=== PATIENT | female | born 1970 | race Caucasian/White ===

== ENCOUNTER 2022-10-16 08:09 | Outpatient (RCR) | payer BC, SELFPAY ==
[2022-10-16 08:20] VITALS: BMI 30.3
[2022-10-16 14:25] VITALS: BMI 30.3
== END 2022-11-28 16:46 | disposition home or self-care (01) ==
LOC: ANHDMC 08:09
PROVIDERS: PCP Family Medicine; Visit Provider Family Medicine
DX: E11.65 Type 2 diabetes mellitus with hyperglycemia (principal); Z71.3 Dietary counseling and surveillance; Z71.89 Other specified counseling
CPT/HCPCS: 97802; G0108

== ENCOUNTER 2023-11-06 10:10 | Outpatient (CLI) | payer BC, SELFPAY ==
[2023-11-06 11:34] LABS: Influenza A QL RT-PCR Negative (Negative); Influenza B QL RT-PCR Negative (Negative); RSV RNA, RT-PCR Negative (Negative); SARS-CoV-2 RNA PCR Negative (Negative)
== END 2023-11-06 10:11 | disposition home or self-care (01) ==
LOC: ANHLAB 10:12
PROVIDERS: PCP Family Medicine; Visit Provider Physician Assistant
DX: R05.9 Cough, unspecified (principal)
CPT/HCPCS: 87637